=== PATIENT | female | born 1970 | race African-American/Black ===

== ENCOUNTER 2016-06-30 14:26 | Emergency (ER) | payer MEDICAID ==
[2016-06-30] MEDS ORDERED: MORPHINE 4 MG/ML SYR ONE (18:05)
[2016-06-30] MEDS ORDERED: CEFTRIAXONE 1 GM VIAL ONE (18:05)
[2016-06-30] MEDS ORDERED: LIDOCAINE 1% MDV 20 ML ONE (18:06)
== END 2016-06-30 18:51 | disposition home or self-care (01) ==
LOC: ER 14:26
DX: N10 Acute pyelonephritis (principal); R10.9 Unspecified abdominal pain; F17.200 Nicotine dependence, unspecified, uncomplicated
CPT/HCPCS: 36415; 74176; 80053; 81001; 83690; 84703; 85025; 87088; 96372